=== PATIENT | female | born 1990 | race Two or more races ===

== ENCOUNTER → 2024-10-19 | Emergency (ER) | payer OTHER ==
[~2024-10-19] VITALS: Ht 180.3 cm; Wt 79.8 kg
[~2024-10-19] MED LIST: PRENATAL + DHA1 EAC1
== END | disposition left against medical advice (07) ==
LOC: ER 11:06
DX: O99.891 Other specified diseases and conditions complicating pregnancy (principal); Z3A.08 8 weeks gestation of pregnancy